=== PATIENT | female | born 1945 | race Caucasian/White ===

== ENCOUNTER → 2018-10-21 | Outpatient (CLI) | payer MEDICARE, OTHER | LOC: US 00:39 | PROVIDERS: ATTEND Internal Medicine Cardiovascular Disease | DX: I48.0 Paroxysmal atrial fibrillation (principal); I34.0 Nonrheumatic mitral (valve) insufficiency | CPT/HCPCS: 93306 ==

== ENCOUNTER → 2018-12-22 | Outpatient (CLI) | payer MEDICARE, OTHER ==
--- NOTE | 2018-12-23 07:20 | RT STRESS TEST REPORT ---
FACILITY: [facility] PATIENT NAME: MARTIN SINGH : [id number] MR: [id number]: [id number] EXAM DATE: ORDERING PHYSICIAN: SHELL BONILLA TECHNOLOGIST: [employer] Time: 2018-12-22 10:37:51 Total Exercise Time: 00:06:00 Test Indications: afib Medications: Protocol: DUC 2 Max HR: 133 BPM 90% of Pred: 147 BPM Max BP: 140/066 mmHG Max Work Load: 7.0 METS SEE ECHO REPORT Confirmed by DEACON MÁRQUEZ ([id number]), supervising editor trailer Janis Rosario ([id number]) on 12/23/2018 7:20:23 AM Referred By: Overread By: DEACON MÁRQUEZ
== END ==
LOC: US 00:34
PROVIDERS: ATTEND Internal Medicine Cardiovascular Disease
DX: I48.0 Paroxysmal atrial fibrillation (principal)
CPT/HCPCS: 93017; 93350

== ENCOUNTER → 2019-03-02 | Outpatient (CLI) | payer MEDICARE, OTHER | LOC: LAB 16:13 | PROVIDERS: ATTEND Internal Medicine Clinical Cardiac Electrophysiology | DX: I48.0 Paroxysmal atrial fibrillation (principal) | CPT/HCPCS: 36415; 82310; 82374; 82435; 82565; 82947; 84132; 84295; 84520; 85027 ==